=== PATIENT | male | born 1990 | race Caucasian/White ===

== ENCOUNTER 2016-07-16 19:07 | Emergency (ER) | payer OTHER ==
[2016-07-16 19:24] VITALS: RESP 18
[2016-07-16] MEDS ORDERED: SODIUM CHLORIDE 0.9% 1,000 ML IV STA (20:08)
--- NOTE | 2016-07-16 20:15 | ED ---
Syncope HPI - General Chief Complaint: Syncope Stated Complaint: poss seizure/hit head Time Seen by Provider: 07/16/16 19:47 Source: patient, RN notes reviewed Mode of arrival: wheelchair Limitations: no limitations - History of Present Illness Initial Comments: Patient is a 25-year-old male presents to the emergency room for evaluation of possible syncopal episode. Patient states that he was visiting a family member upstairs and was standing for long period of time and all of a sudden felt a hot sensation through his body and woke up on the floor. Patient's mother is present with patient. Patient's mother states that patient fell backwards into the door hit his head. Patient does admit that he has not eaten anything today. Patient's Accu-Chek was at 79. Patient does state he has a headache from hitting his head. Patient's mother states that patient lost consciousness for about 10 seconds and woke up. Patient denies neck pain. Patient's chest pain or shortness breath. Patient denies abdominal pain. Patient denies back pain. Patient denies paresthesia's. Patient denies any dizziness or nausea. - Related Data Home Medications Medication Instructions Recorded Confirmed Multivitamins, Thera [Multivitamin 1 tab PO DAILY 07/16/16 07/16/16 (formulary)] Allergies Allergy/AdvReac Type Severity Reaction Status Date / Time No Known Allergies Allergy Verified 07/16/16 20:15 Review of Systems ROS Statement: Those systems with pertinent positive or pertinent negative responses have been documented in the HPI. ROS Other: All systems not noted in ROS Statement are negative. Past Medical History Past Medical History: Rheumatoid Arthritis (RA) History of Any Multi-Drug Resistant Organisms: None Reported Past Surgical History: No Surgical Hx Reported Past Psychological History: No Psychological Hx Reported Smoking Status: Current every day smoker Past Alcohol Use History: Occasional Past Drug Use History: Marijuana General Exam - General Exam Comments Initial Comments: Sitting in exam room, no acute distress. Limitations: no limitations General appearance: alert, in no apparent distress Head exam: Present: atraumatic, normocephalic, normal inspection Eye exam: Present: normal appearance, PERRL, EOMI Pupils: Present: normal accommodation ENT exam: Present: normal exam, mucous membranes moist, TM's normal bilaterally , normal external ear exam Neck exam: Present: normal inspection, full ROM. Absent: tenderness, lymphadenopathy Respiratory exam: Present: normal lung sounds bilaterally. Absent: respiratory distress Cardiovascular Exam: Present: regular rate, normal rhythm, normal heart sounds Extremities exam: Present: normal inspection Back exam: Present: normal inspection Neurological exam: Present: alert, oriented X3, CN II-XII intact, normal gait Expanded Patient oriented to: Present: person, place, time Speech: Present: fluid speech Cranial nerves: EOM's Intact: Normal, Facial Sensation: Normal Sensory exam: Upper Extremity Light Touch: Normal, Lower Extremity Light Touch: Normal Motor strength exam: RUE: 5, LUE: 5, RLE: 5, LLE: 5 Eye Response: (4) open spontaneously Motor Response: (6) obeys commands Verbal Response: (5) oriented Psychiatric exam: Present: normal affect, normal mood Skin exam: Present: warm, dry, intact, normal color. Absent: rash Course Vital Signs 07/16/16 07/16/16 19:19 21:34 Temperature 98 F 97.5 F L Pulse Rate 70 72 Respiratory 18 18 Rate Blood Pressure 106/63 105/66 O2 Sat by Pulse 97 96 Oximetry EKG Findings - EKG Comments: EKG Findings:: normal sinus rhythm, ventricular rate 64 bpm, MT interval 134 ms , QRS duration 90 ms, QT/QTc 360/371 ms Medical Decision Making - Medical Decision Making Patient is a 25-year-old male presents emergency room for evaluation of syncopal episode. It appears patient had a vasovagal episode. Patient is alert and oriented 3. Patient's CT shows no acute findings. Labs no acute findings. Patient will be discharged home. Return parameters discussed. Case discussed Dr. Zuniga. - Lab Data Result diagrams: 07/16/16 19:55 07/16/16 19:55 Lab Results 07/16/16 07/16/16 07/16/16 Range/Units 19:55 19:55 19:55 WBC 6.7 (3.8-10.6) k/uL RBC 5.69 (4.30-5.90) m/uL Hgb 15.8 (13.0-17.5) gm/dL Hct 49.4 (39.0-53.0) % MCV 86.7 (80.0-100.0) fL MCH 27.7 (25.0-35.0) pg MCHC 32.0 (31.0-37.0) g/dL RDW 13.6 (11.5-15.5) % Plt Count 178 (150-450) k/uL Neutrophils % 51 % Lymphocytes % 33 % Monocytes % 8 % Eosinophils % 4 % Basophils % 1 % Neutrophils # 3.4 (1.3-7.7) k/uL Lymphocytes # 2.2 (1.0-4.8) k/uL Monocytes # 0.5 (0-1.0) k/uL Eosinophils # 0.2 (0-0.7) k/uL Basophils # 0.1 (0-0.2) k/uL PT (9.0-12.0) sec INR (<1.1) APTT (22.0-30.0) sec Sodium 140 (137-145) mmol/L Potassium 4.0 (3.5-5.1) mmol/L Chloride 104 (98-107) mmol/L Carbon Dioxide 24 (22-30) mmol/L Anion Gap 12 mmol/L BUN 11 (9-20) mg/dL Creatinine 1.06 (0.66-1.25) mg/dL Est GFR (MDRD) Af Amer >60 (>60 ml/min/1.73 sqM) Est GFR (MDRD) Non-Af >60 (>60 ml/min/1.73 sqM) Glucose 78 (74-99) mg/dL POC Glucose (mg/dL) (75-99) mg/dL POC Glu Revenue Cycle Administrator ID Calcium 9.5 (8.4-10.2) mg/dL Total Bilirubin 0.8 (0.2-1.3) mg/dL AST 20 (17-59) U/L ALT 24 (21-72) U/L Alkaline Phosphatase 57 (38-126) U/L Total Creatine Kinase 94 (55-170) U/L CK-MB (CK-2) 0.4 (0.0-2.4) ng/mL CK-MB (CK-2) Rel Index 0.4 Troponin I <0.012 (0.000-0.034) ng/mL Total Protein 7.7 (6.3-8.2) g/dL Albumin 4.7 (3.5-5.0) g/dL Urine Color Urine Appearance (Clear) Urine pH (5.0-8.0) Ur Specific [place] (1.001-1.035) Urine Protein (Negative) Urine Glucose (UA) (Negative) Urine Ketones (Negative) Urine Blood (Negative) Urine Nitrite (Negative) Urine Bilirubin (Negative) Urine Urobilinogen (<2.0) mg/dL Ur Leukocyte Esterase (Negative) Urine WBC (0-5) /hpf Ur Squamous Epith Cells (0-4) /hpf Hyaline Casts (0-2) /lpf Urine Mucus (None) /hpf Urine Opiates Screen (NotDetected) Ur Oxycodone Screen (NotDetected) Urine Methadone Screen (NotDetected) Ur Propoxyphene Screen (NotDetected) Ur Barbiturates Screen (NotDetected) U Tricyclic Antidepress (NotDetected) Ur Phencyclidine Scrn (NotDetected) Ur Amphetamines Screen (NotDetected) U Methamphetamines Scrn (NotDetected) U Benzodiazepines Scrn (NotDetected) Urine Cocaine Screen (NotDetected) U Marijuana (THC) Screen (NotDetected) 07/16/16 07/16/16 07/16/16 Range/Units 19:55 19:59 21:05 WBC (3.8-10.6) k/uL RBC (4.30-5.90) m/uL Hgb (13.0-17.5) gm/dL Hct (39.0-53.0) % MCV (80.0-100.0) fL MCH (25.0-35.0) pg MCHC (31.0-37.0) g/dL RDW (11.5-15.5) % Plt Count (150-450) k/uL Neutrophils % % Lymphocytes % % Monocytes % % Eosinophils % % Basophils % % Neutrophils # (1.3-7.7) k/uL Lymphocytes # (1.0-4.8) k/uL Monocytes # (0-1.0) k/uL Eosinophils # (0-0.7) k/uL Basophils # (0-0.2) k/uL PT 13.1 H (9.0-12.0) sec INR 1.3 (<1.1) APTT 24.6 (22.0-30.0) sec Sodium (137-145) mmol/L Potassium (3.5-5.1) mmol/L Chloride (98-107) mmol/L Carbon Dioxide (22-30) mmol/L Anion Gap mmol/L BUN (9-20) mg/dL Creatinine (0.66-1.25) mg/dL Est GFR (MDRD) Af Amer (>60 ml/min/1.73 sqM) Est GFR (MDRD) Non-Af (>60 ml/min/1.73 sqM) Glucose (74-99) mg/dL POC Glucose (mg/dL) 79 (75-99) mg/dL POC Glu Revenue Cycle Administrator ID Lisa Hauser Calcium (8.4-10.2) mg/dL Total Bilirubin (0.2-1.3) mg/dL AST (17-59) U/L ALT (21-72) U/L Alkaline Phosphatase (38-126) U/L Total Creatine Kinase (55-170) U/L CK-MB (CK-2) (0.0-2.4) ng/mL CK-MB (CK-2) Rel Index Troponin I (0.000-0.034) ng/mL Total Protein (6.3-8.2) g/dL Albumin (3.5-5.0) g/dL Urine Color Yellow Urine Appearance Clear (Clear) Urine pH 5.5 (5.0-8.0) Ur Specific [place] 1.014 (1.001-1.035) Urine Protein 2+ H (Negative) Urine Glucose (UA) Negative (Negative) Urine Ketones Negative (Negative) Urine Blood Negative (Negative) Urine Nitrite Negative (Negative) Urine Bilirubin Negative (Negative) Urine Urobilinogen <2.0 (<2.0) mg/dL Ur Leukocyte Esterase Negative (Negative) Urine WBC 5 (0-5) /hpf Ur Squamous Epith Cells <1 (0-4) /hpf Hyaline Casts 4 H (0-2) /lpf Urine Mucus Many H (None) /hpf Urine Opiates Screen Not Detected (NotDetected) Ur Oxycodone Screen Not Detected (NotDetected) Urine Methadone Screen Not Detected (NotDetected) Ur Propoxyphene Screen Not Detected (NotDetected) Ur Barbiturates Screen Not Detected (NotDetected) U Tricyclic Antidepress Not Detected (NotDetected) Ur Phencyclidine Scrn Not Detected (NotDetected) Ur Amphetamines Screen Not Detected (NotDetected) U Methamphetamines Scrn Not Detected (NotDetected) U Benzodiazepines Scrn Not Detected (NotDetected) Urine Cocaine Screen Not Detected (NotDetected) U Marijuana (THC) Screen Detected H (NotDetected) 07/16/16 Range/Units 21:30 WBC (3.8-10.6) k/uL RBC (4.30-5.90) m/uL Hgb (13.0-17.5) gm/dL Hct (39.0-53.0) % MCV (80.0-100.0) fL MCH (25.0-35.0) pg MCHC (31.0-37.0) g/dL RDW (11.5-15.5) % Plt Count (150-450) k/uL Neutrophils % % Lymphocytes % % Monocytes % % Eosinophils % % Basophils % % Neutrophils # (1.3-7.7) k/uL Lymphocytes # (1.0-4.8) k/uL Monocytes # (0-1.0) k/uL Eosinophils # (0-0.7) k/uL Basophils # (0-0.2) k/uL PT (9.0-12.0) sec INR (<1.1) APTT (22.0-30.0) sec Sodium (137-145) mmol/L Potassium (3.5-5.1) mmol/L Chloride (98-107) mmol/L Carbon Dioxide (22-30) mmol/L Anion Gap mmol/L BUN (9-20) mg/dL Creatinine (0.66-1.25) mg/dL Est GFR (MDRD) Af Amer (>60 ml/min/1.73 sqM) Est GFR (MDRD) Non-Af (>60 ml/min/1.73 sqM) Glucose (74-99) mg/dL POC Glucose (mg/dL) 112 H (75-99) mg/dL POC Glu Revenue Cycle Administrator ID Edmond Dean Calcium (8.4-10.2) mg/dL Total Bilirubin (0.2-1.3) mg/dL AST (17-59) U/L ALT (21-72) U/L Alkaline Phosphatase (38-126) U/L Total Creatine Kinase (55-170) U/L CK-MB (CK-2) (0.0-2.4) ng/mL CK-MB (CK-2) Rel Index Troponin I (0.000-0.034) ng/mL Total Protein (6.3-8.2) g/dL Albumin (3.5-5.0) g/dL Urine Color Urine Appearance (Clear) Urine pH (5.0-8.0) Ur Specific [place] (1.001-1.035) Urine Protein (Negative) Urine Glucose (UA) (Negative) Urine Ketones (Negative) Urine Blood (Negative) Urine Nitrite (Negative) Urine Bilirubin (Negative) Urine Urobilinogen (<2.0) mg/dL Ur Leukocyte Esterase (Negative) Urine WBC (0-5) /hpf Ur Squamous Epith Cells (0-4) /hpf Hyaline Casts (0-2) /lpf Urine Mucus (None) /hpf Urine Opiates Screen (NotDetected) Ur Oxycodone Screen (NotDetected) Urine Methadone Screen (NotDetected) Ur Propoxyphene Screen (NotDetected) Ur Barbiturates Screen (NotDetected) U Tricyclic Antidepress (NotDetected) Ur Phencyclidine Scrn (NotDetected) Ur Amphetamines Screen (NotDetected) U Methamphetamines Scrn (NotDetected) U Benzodiazepines Scrn (NotDetected) Urine Cocaine Screen (NotDetected) U Marijuana (THC) Screen (NotDetected) - Radiology Data Radiology results: report reviewed, image reviewed Disposition Clinical Impression: Vasovagal syncope Disposition: HOME SELF-CARE Condition: Good Instructions: Syncope (ED) Additional Instructions: Drink plenty of water. Make sure to eat 3 meals a day. Please follow up with primary care provider in 1-2 days. If any new symptom arises or symptoms worsen , return to ER as soon as possible. Referrals: Ryan Torres MD [Primary Care Provider] - 1-2 days Time of Disposition: 21:27
[2016-07-16 20:18] LABS: Basophils # (A) 0.1 k/uL (0-0.2); Basophils % (A) 1 %; CH 28.6; CHCM 33.2; Eosinophils # (A) 0.2 k/uL (0-0.7); Eosinophils % (A) 4 %; HCT 49.4 % (39.0-53.0); HDW 2.34; HGB 15.8 gm/dL (13.0-17.5); Luc # (Auto) 0.25; Luc % (Auto) 4; Lymphocytes # (A) 2.2 k/uL (1.0-4.8); Lymphocytes % (A) 33 %; MCH 27.7 pg (25.0-35.0); MCV 86.7 fL (80.0-100.0); Mean Platelet Volume 9.1; Monocytes # (A) 0.5 k/uL (0-1.0); Monocytes % (A) 8 %; Neutrophils # (A) 3.4 k/uL (1.3-7.7); Neutrophils % (A) 51 %; RBC 5.69 m/uL (4.30-5.90); RDW 13.6 % (11.5-15.5); WBC 6.7 k/uL (3.8-10.6); WBC (Perox) 6.43
[2016-07-16 20:19] LABS: Glucose,Whole Blood 79 mg/dL (75-99)
[2016-07-16 20:27] LABS: ALT 24 U/L (21-72); AST 20 U/L (17-59); Alkaline Phosphatase 57 U/L (38-126); Anion Gap 12 mmol/L; Blood Urea Nitrogen 11 mg/dL (9-20); Calcium 9.5 mg/dL (8.4-10.2); Carbon Dioxide 24 mmol/L (22-30); Chloride 104 mmol/L (98-107); Glucose 78 mg/dL (74-99); Non-African American GFR(MDRD) >60 (>60 ml/min/1.73 sqM); Sodium 140 mmol/L (137-145); Total Bilirubin 0.8 mg/dL (0.2-1.3); Total Protein 7.7 g/dL (6.3-8.2)
[2016-07-16 20:28] LABS: INR 1.3 (<1.1); Partial Thromboplastin Time 24.6 sec (22.0-30.0); Prothrombin Time 13.1 sec (9.0-12.0)
[2016-07-16 20:37] LABS: Creatine Kinase 94 U/L (55-170)
[2016-07-16 20:50] LABS: Creatine Kinase MB 0.4 ng/mL (0.0-2.4); Troponin I <0.012 ng/mL (0.000-0.034)
--- NOTE | 2016-07-16 20:50 | CT ---
EXAMINATION TYPE: CT brain [facility]an [facility] con DATE OF EXAM: 07/16/2016 COMPARISON: CT brain 11/19/2008. HISTORY: Syncope today with head injury. CT DLP: 1277.7 mGycm Automated exposure control for dose reduction was used. TECHNIQUE: CT scan of the head and cervical spine are performed without contrast. FINDINGS: The ventricles and sulci appear normal. There is no mass effect nor midline shift. There is no sign of intracranial hemorrhage. The calvarium is intact. There is mild straightening of the vertebra which is probably positional. Disc spaces are normal. Fac et joints are intact. The skull base is intact. I see no focal bony destructive process. There is no sign of a fracture. IMPRESSION: Normal CT scan of the brain. No change compared to old exam. Normal CT scan of the cervical spine.
[2016-07-16 21:16] LABS: Appearance,Urine Clear (Clear); Bilirubin,Urine Negative (Negative); Glucose,Urine (UA) Negative (Negative); Ketones,Urine Negative (Negative); Leukocyte Esterase,Urine Negative (Negative); Mucus,Urine Many /hpf; Nitrite,Urine Negative (Negative); PH, Urine 5.5 (5.0-8.0); Particle Count 10491; Protein,Urine 2+ (Negative); Specific Gravity,Urine 1.014 (1.001-1.035); Squamous Epithelial Cell,Urine <1 /hpf (0-4); UA Billing (MACRO vs. MICRO) MICRO; Urobilinogen,Urine <2.0 mg/dL (<2.0); WBC,Urine 5 /hpf (0-5)
[2016-07-16 21:35] VITALS: BP 105/66; PULSE 72; TEMP 97.5
[2016-07-16 21:35] LABS: Glucose,Whole Blood 112 mg/dL (75-99)
== END 2016-07-16 21:43 | disposition home or self-care (01) ==
LOC: EC 19:07
DX: R55 Syncope and collapse (principal); R51 Headache; F17.200 Nicotine dependence, unspecified, uncomplicated; Z79.899 Other long term (current) drug therapy; W01.198A Fall on same level from slipping, tripping and stumbling with subsequent striking against other object, initial encounter; Y92.89 Other specified places as the place of occurrence of the external cause; Y93.89 Activity, other specified
CPT/HCPCS: 36415; 70450; 72125; 80053; 80306; 81001; 82550; 82553; 84484; 85025; 85610; 85730; 93005; 96360; 99284

== ENCOUNTER 2018-08-27 01:38 | Inpatient (IN) | payer BC ==
[2018-08-27] MEDS ORDERED: SODIUM CHLORIDE 0.9% 1,000 ML IV STA (02:29)
[2018-08-27] MEDS ORDERED: LORazepam 2 MG/ML INJ IV STA ×2 (02:30→02:51)
--- NOTE | 2018-08-27 02:31 | ED ---
Overdose HPI - General Stated Complaint: etoh Time Seen by Provider: 08/27/18 02:00 - Related Data Home Medications Medication Instructions Recorded Confirmed Multivitamins, Thera [Multivitamin 1 tab PO DAILY 07/16/16 07/16/16 (formulary)] Previous Rx's Medication Instructions Recorded predniSONE 20 mg PO DAILY 4 Days #4 tab 10/15/17 Allergies Allergy/AdvReac Type Severity Reaction Status Date / Time No Known Allergies Allergy Verified 10/15/17 15:09 Review of Systems ROS Statement: Those systems with pertinent positive or pertinent negative responses have been documented in the HPI. ROS Other: All systems not noted in ROS Statement are negative. Past Medical History Past Medical History: Rheumatoid Arthritis (RA) History of Any Multi-Drug Resistant Organisms: None Reported Past Surgical History: No Surgical Hx Reported Past Psychological History: No Psychological Hx Reported Smoking Status: Current every day smoker Past Alcohol Use History: Occasional Past Drug Use History: Marijuana Course Vital Signs 08/27/18 08/27/18 08/27/18 02:16 02:44 02:59 Pulse Rate 103 H 89 Respiratory 19 18 18 Rate Blood Pressure 145/106 106/67 98/74 O2 Sat by Pulse 99 99 98 Oximetry 08/27/18 08/27/18 08/27/18 03:07 03:10 03:20 Pulse Rate 91 98 73 Respiratory 19 20 15 Rate Blood Pressure 98/74 108/83 113/74 O2 Sat by Pulse Oximetry 08/27/18 08/27/18 08/27/18 03:40 03:50 04:00 Pulse Rate 69 91 70 Respiratory 18 20 14 Rate Blood Pressure 121/71 118/76 118/76 O2 Sat by Pulse 99 99 Oximetry 08/27/18 08/27/18 08/27/18 04:10 04:20 04:40 Pulse Rate 79 84 70 Respiratory 14 16 14 Rate Blood Pressure 121/74 111/79 121/75 O2 Sat by Pulse 100 Oximetry 08/27/18 04:50 Pulse Rate 77 Respiratory 15 Rate Blood Pressure 115/73 O2 Sat by Pulse 99 Oximetry Procedures - Intubation Sedative: Etomidate Paralytic: Succinylcholine Laryngoscope: fiber optic video scope ET Tube Size: 8 Tube Placement Confirmation: visualized tube passing through cords, equal breath sounds bilaterally, no breath sounds over epigastrium, confirmation by capnometry Patient Tolerated Procedure: well, no complications Intubation Complications: difficult intubation Medical Decision Making - Lab Data Result diagrams: 08/27/18 02:04 08/27/18 02:04 Lab Results 08/27/18 08/27/18 08/27/18 Range/Units 02:04 02:04 02:04 WBC 9.8 (3.8-10.6) k/uL RBC 5.42 (4.30-5.90) m/uL Hgb 14.5 (13.0-17.5) gm/dL Hct 44.9 (39.0-53.0) % MCV 82.8 (80.0-100.0) fL MCH 26.8 (25.0-35.0) pg MCHC 32.4 (31.0-37.0) g/dL RDW 13.9 (11.5-15.5) % Plt Count 248 (150-450) k/uL Neutrophils % 51 % Lymphocytes % 38 % Monocytes % 4 % Eosinophils % 3 % Basophils % 1 % Neutrophils # 5.0 (1.3-7.7) k/uL Lymphocytes # 3.7 (1.0-4.8) k/uL Monocytes # 0.4 (0-1.0) k/uL Eosinophils # 0.3 (0-0.7) k/uL Basophils # 0.1 (0-0.2) k/uL Sample Site ABG pH (7.35-7.45) ABG pCO2 (35-45) mmHg ABG pO2 (83-108) mmHg ABG HCO3 (21-25) mmol/L ABG Total CO2 (19-24) mmol/L ABG O2 Saturation (94-97) % ABG Base Excess mmol/L Alexis Test FiO2 % Sodium 144 (137-145) mmol/L Potassium 3.2 L (3.5-5.1) mmol/L Chloride 108 H (98-107) mmol/L Carbon Dioxide 21 L (22-30) mmol/L Anion Gap 15 mmol/L BUN 11 (9-20) mg/dL Creatinine 1.04 (0.66-1.25) mg/dL Est GFR (CKD-EPI)AfAm >90 (>60 ml/min/1.73 sqM) Est GFR (CKD-EPI)NonAf >90 (>60 ml/min/1.73 sqM) Glucose 108 H (74-99) mg/dL POC Glucose (mg/dL) (75-99) mg/dL POC Glu Civil Cad Designer ID Lactic Ac Sepsis Rflx Plasma Lactic Acid Breezy (0.7-2.0) mmol/L Calcium 9.4 (8.4-10.2) mg/dL Total Bilirubin 0.8 (0.2-1.3) mg/dL AST 27 (17-59) U/L ALT 19 L (21-72) U/L Alkaline Phosphatase 71 (38-126) U/L Total Protein 8.1 (6.3-8.2) g/dL Albumin 5.0 (3.5-5.0) g/dL Salicylates <1.0 mg/dL Urine Opiates Screen Not Detected (NotDetected) Ur Oxycodone Screen Not Detected (NotDetected) Urine Methadone Screen Not Detected (NotDetected) Ur Propoxyphene Screen Not Detected (NotDetected) Acetaminophen <10.0 ug/mL Ur Barbiturates Screen Not Detected (NotDetected) U Tricyclic Antidepress Not Detected (NotDetected) Ur Phencyclidine Scrn Not Detected (NotDetected) Ur Amphetamines Screen Not Detected (NotDetected) U Methamphetamines Scrn Not Detected (NotDetected) U Benzodiazepines Scrn Not Detected (NotDetected) Urine Cocaine Screen Not Detected (NotDetected) U Marijuana (THC) Screen Detected H (NotDetected) Serum Alcohol 227 H* mg/dL 08/27/18 08/27/18 08/27/18 Range/Units 02:23 02:44 02:48 WBC (3.8-10.6) k/uL RBC (4.30-5.90) m/uL Hgb (13.0-17.5) gm/dL Hct (39.0-53.0) % MCV (80.0-100.0) fL MCH (25.0-35.0) pg MCHC (31.0-37.0) g/dL RDW (11.5-15.5) % Plt Count (150-450) k/uL Neutrophils % % Lymphocytes % % Monocytes % % Eosinophils % % Basophils % % Neutrophils # (1.3-7.7) k/uL Lymphocytes # (1.0-4.8) k/uL Monocytes # (0-1.0) k/uL Eosinophils # (0-0.7) k/uL Basophils # (0-0.2) k/uL Sample Site ABG pH (7.35-7.45) ABG pCO2 (35-45) mmHg ABG pO2 (83-108) mmHg ABG HCO3 (21-25) mmol/L ABG Total CO2 (19-24) mmol/L ABG O2 Saturation (94-97) % ABG Base Excess mmol/L Alexis Test FiO2 % Sodium (137-145) mmol/L Potassium (3.5-5.1) mmol/L Chloride (98-107) mmol/L Carbon Dioxide (22-30) mmol/L Anion Gap mmol/L BUN (9-20) mg/dL Creatinine (0.66-1.25) mg/dL Est GFR (CKD-EPI)AfAm (>60 ml/min/1.73 sqM) Est GFR (CKD-EPI)NonAf (>60 ml/min/1.73 sqM) Glucose (74-99) mg/dL POC Glucose (mg/dL) 122 H (75-99) mg/dL POC Glu Civil Cad Designer ID Jo Ann Stern Lactic Ac Sepsis Rflx Y Plasma Lactic Acid Breezy 3.2 H* (0.7-2.0) mmol/L Calcium (8.4-10.2) mg/dL Total Bilirubin (0.2-1.3) mg/dL AST (17-59) U/L ALT (21-72) U/L Alkaline Phosphatase (38-126) U/L Total Protein (6.3-8.2) g/dL Albumin (3.5-5.0) g/dL Salicylates mg/dL Urine Opiates Screen (NotDetected) Ur Oxycodone Screen (NotDetected) Urine Methadone Screen (NotDetected) Ur Propoxyphene Screen (NotDetected) Acetaminophen ug/mL Ur Barbiturates Screen (NotDetected) U Tricyclic Antidepress (NotDetected) Ur Phencyclidine Scrn (NotDetected) Ur Amphetamines Screen (NotDetected) U Methamphetamines Scrn (NotDetected) U Benzodiazepines Scrn (NotDetected) Urine Cocaine Screen (NotDetected) U Marijuana (THC) Screen (NotDetected) Serum Alcohol mg/dL 08/27/18 Range/Units 03:10 WBC (3.8-10.6) k/uL RBC (4.30-5.90) m/uL Hgb (13.0-17.5) gm/dL Hct (39.0-53.0) % MCV (80.0-100.0) fL MCH (25.0-35.0) pg MCHC (31.0-37.0) g/dL RDW (11.5-15.5) % Plt Count (150-450) k/uL Neutrophils % % Lymphocytes % % Monocytes % % Eosinophils % % Basophils % % Neutrophils # (1.3-7.7) k/uL Lymphocytes # (1.0-4.8) k/uL Monocytes # (0-1.0) k/uL Eosinophils # (0-0.7) k/uL Basophils # (0-0.2) k/uL Sample Site rbrac ABG pH 7.27 L (7.35-7.45) ABG pCO2 47 H (35-45) mmHg ABG pO2 >400 H (83-108) mmHg ABG HCO3 21 (21-25) mmol/L ABG Total CO2 23 (19-24) mmol/L ABG O2 Saturation 99.8 H (94-97) % ABG Base Excess -5.8 mmol/L Alexis Test yes FiO2 100 % Sodium (137-145) mmol/L Potassium (3.5-5.1) mmol/L Chloride (98-107) mmol/L Carbon Dioxide (22-30) mmol/L Anion Gap mmol/L BUN (9-20) mg/dL Creatinine (0.66-1.25) mg/dL Est GFR (CKD-EPI)AfAm (>60 ml/min/1.73 sqM) Est GFR (CKD-EPI)NonAf (>60 ml/min/1.73 sqM) Glucose (74-99) mg/dL POC Glucose (mg/dL) (75-99) mg/dL POC Glu Civil Cad Designer ID Lactic Ac Sepsis Rflx Plasma Lactic Acid Breezy (0.7-2.0) mmol/L Calcium (8.4-10.2) mg/dL Total Bilirubin (0.2-1.3) mg/dL AST (17-59) U/L ALT (21-72) U/L Alkaline Phosphatase (38-126) U/L Total Protein (6.3-8.2) g/dL Albumin (3.5-5.0) g/dL Salicylates mg/dL Urine Opiates Screen (NotDetected) Ur Oxycodone Screen (NotDetected) Urine Methadone Screen (NotDetected) Ur Propoxyphene Screen (NotDetected) Acetaminophen ug/mL Ur Barbiturates Screen (NotDetected) U Tricyclic Antidepress (NotDetected) Ur Phencyclidine Scrn (NotDetected) Ur Amphetamines Screen (NotDetected) U Methamphetamines Scrn (NotDetected) U Benzodiazepines Scrn (NotDetected) Urine Cocaine Screen (NotDetected) U Marijuana (THC) Screen (NotDetected) Serum Alcohol mg/dL Disposition Clinical Impression: Alcoholic intoxication Disposition: ADMITTED IP TO THIS [facility] Condition: Serious Instructions (If sedation given, give patient instructions): Alcohol Intox ication (ED) Referrals: Ryan Torres MD [Primary Care Provider] - 1-2 days
[2018-08-27 02:39] LABS: Basophils # (A) 0.1 k/uL (0-0.2); Basophils % (A) 1 %; Eosinophils # (A) 0.3 k/uL (0-0.7); Eosinophils % (A) 3 %; HCT 44.9 % (39.0-53.0); HGB 14.5 gm/dL (13.0-17.5); Lymphocytes # (A) 3.7 k/uL (1.0-4.8); Lymphocytes % (A) 38 %; MCH 26.8 pg (25.0-35.0); MCHC 32.4 g/dL (31.0-37.0); MCV 82.8 fL (80.0-100.0); Monocytes # (A) 0.4 k/uL (0-1.0); Monocytes % (A) 4 %; Neutrophils % (A) 51 %; Platelet Count 248 k/uL (150-450); RBC 5.42 m/uL (4.30-5.90); RDW 13.9 % (11.5-15.5); WBC 9.8 k/uL (3.8-10.6)
[2018-08-27 02:44] LABS: ALT 19 U/L (21-72); AST 27 U/L (17-59); Acetaminophen <10.0 ug/mL; African American GFR (CKD) >90 (>60 ml/min/1.73 sqM); Alkaline Phosphatase 71 U/L (38-126); Anion Gap 15 mmol/L; Blood Urea Nitrogen 11 mg/dL (9-20); Calcium 9.4 mg/dL (8.4-10.2); Carbon Dioxide 21 mmol/L (22-30); Chloride 108 mmol/L (98-107); Glucose 108 mg/dL (74-99); Potassium 3.2 mmol/L (3.5-5.1); Salicylate <1.0 mg/dL; Sodium 144 mmol/L (137-145); Total Bilirubin 0.8 mg/dL (0.2-1.3); Total Protein 8.1 g/dL (6.3-8.2)
[2018-08-27 02:46] LABS: Glucose,Whole Blood 122 mg/dL (75-99)
[2018-08-27 02:48] LABS: Alcohol 227 mg/dL
[2018-08-27 02:50] LABS: Cocaine Screen,Urine Not Detected (NotDetected); Opiate Screen,Urine Not Detected (NotDetected); Phencyclidine Screen,Urine Not Detected (NotDetected); Urn Cannabinoid Scrn Detected (NotDetected)
[2018-08-27] MEDS ORDERED: ETOMIDATE 2 MG/ML 10 ML VIAL IVP STA (02:50)
[2018-08-27] MEDS ORDERED: ONDANSETRON 4 MG/2 ML VIAL IVP STA (02:50)
[2018-08-27 02:51] LABS: Amphetamine Screen,Urine Not Detected (NotDetected); Barbiturate Screen,Urine Not Detected (NotDetected); Benzodiazepines Screen,Urine Not Detected (NotDetected); Methadone Screen, Urine Not Detected (NotDetected); Oxycodone Screen, Urine Not Detected (NotDetected); Tricyclic Antidepressant,Urine Not Detected (NotDetected)
--- NOTE | 2018-08-27 02:51 | XR ---
EXAM: XR Chest, 1 View CLINICAL HISTORY: ITS.REASON XR Reason: intubation TECHNIQUE: Frontal view of the chest. COMPARISON: No relevant prior studies available. IMPRESSION: ET tube terminates 2.9 cm from the mark. NG tube side port terminates just past the GE junction. Recommend advancing 7-10 cm.
[2018-08-27] MEDS ORDERED: SUCCINYLCHOLINE CHLORIDE VIAL 200 MG/10 ML VIAL IV STA (02:53)
[2018-08-27 03:11] LABS: ABG Base Excess -5.8 mmol/L; ABG HCO3 21 mmol/L (21-25); ABG Oxygen Saturation 99.8 % (94-97); ABG PCO2 47 mmHg (35-45); ABG PH 7.27 (7.35-7.45); ABG PO2 >400 mmHg (83-108); ABG TCO2 23 mmol/L (19-24)
[2018-08-27] MEDS ORDERED: PROPOFOL 1,000 MG in EMPTY BAG 1 BAG IV ONE (03:13)
[2018-08-27 03:20] LABS: Allen Test Performed? yes
[2018-08-27] MEDS ORDERED: SODIUM CHLORIDE 0.9% 1,000 ML IV ONE (03:56)
[2018-08-27] MEDS ORDERED: NALOXONE 0.4 MG/ML 1 ML VIAL IV PRN (06:08)
[2018-08-27] MEDS: SODIUM CHLORIDE 0.9% 1,000 ML IV SCH ×2 (07:15→16:26)
[2018-08-27 08:13] LABS: Magnesium 2.4 mg/dL (1.6-2.3); Phosphorus 4.3 mg/dL (2.5-4.5)
[2018-08-27] MEDS ORDERED: IPRATROPIUM-ALBUTEROL 3 ML NEB INHALATION PRN (08:14)
[2018-08-27] MEDS ORDERED: Potassium Replacement Protocol 1 EACH MISC MISCELLANE PRN (08:14)
[2018-08-27] MEDS ORDERED: PROPOFOL 1,000 MG in EMPTY BAG 1 BAG IV SCH (08:15)
[2018-08-27] MEDS: POTASSIUM BICARBONATE/CIT AC 20 MEQ TABLET.EFF NG-TUBE SCH ×2 (08:58→10:50)
[2018-08-27] MEDS: FAMOTIDINE 20 MG/2 ML VIAL IV SCH ×2 (08:58→22:07)
[2018-08-27] MEDS ORDERED: CHLORHEXIDINE GLUCONATE 15 ML CUP MUCOUS MEM SCH (09:00)
[2018-08-27] MEDS ORDERED: LORazepam 2 MG/ML INJ IV PRN ×3 (09:09)
[2018-08-27] MEDS ORDERED: SODIUM CHLORIDE 0.9% 1,000 ML with POTASSIUM CHLORIDE 20 MEQ, MVI, ADULT NO.4 WITH VIT ... IV SCH ×5 (09:15)
--- NOTE | 2018-08-27 10:10 | CONS ---
CONSULTATION This is a pulmonary/critical care consultation DATE OF SERVICE: August 27, 2018. This is a 28-year-old gentleman who apparently was evaluated by Dr. Higgins in the emergency room. He apparently was [place] in [place] He was brought into the emergency room. His alcohol level was 227. His drug screen was positive for marijuana. He does carry with him a diagnosis of rheumatoid arthritis. Anyway, because of poor mental status, the patient was intubated and mechanically ventilated. Currently, he is in the ICU on Diprivan at 50 mcg/kg per minute, saline IV 100 mL an hour. His chest x-ray looks okay. His vent settings include the volume assist-control mode rate of 14, tidal volume 500, FiO2 35% and PEEP of 5. Blood gases show a pO2 of greater than 400, a pACO2 of 47, and pH 7.27. Anyway, according to the ER doctor, at 1 point, he was much more awake and alert and then at some point, he became less responsive, which is why they chose to intubate him. They were concerned that he could not protect his airway. CURRENT HOME MEDICATIONS: Include multivitamins and prednisone. ALLERGIES: Denied. MEDICAL HISTORY: Positive only for rheumatoid arthritis. No past surgical history. SOCIAL HISTORY: Positive for ongoing tobacco use as well as marijuana use. There is occasional alcohol use. His alcohol level on this admission was 227. FAMILY HISTORY: Noncontributory. OCCUPATION HISTORY: Not known. REVIEW OF SYSTEMS: Cannot be obtained. No family members are available. The patient is currently intubated, mechanically ventilated and sedated with propofol. PHYSICAL EXAMINATION: VITAL SIGNS: Current vital signs are reviewed. His temperature is 98.2, heart rate 66, respiratory rate 14, blood pressure 113/75, mean 87, saturations are 95%-96% on 35% FiO2 and 5 of PEEP. GENERAL: Appears in no acute distress. Currently sedated. He does arouse. He appears to be somewhat agitated when you do arouse him. HEENT examination is grossly unremarkable. There is an orally placed endotracheal tube. NECK: Supple. Full range of motion. No adenopathy. CARDIOVASCULAR examination reveals a regular rhythm and rate. Heart rate 66. S1, S2 normal. LUNGS: Relatively clear. ABDOMEN: Soft. Bowel sounds are heard. EXTREMITIES are intact. No cyanosis, clubbing, or edema. SKIN: Without rash. NEUROLOGIC examination could not be evaluated. LABORATORY DATA: A CBC is normal. Blood gases have been noted. Sodium 144, potassium 3.2, chloride 108, CO2 21 anion gap is 15. BUN and creatinine were 11 and 1.04. Lactic acid was 2.6. Magnesium 2.4. Liver function tests were okay. Drug screen was positive for marijuana and alcohol level was 227. Medications are reviewed. These medications appear to be appropriate. ASSESSMENT: 1. Acute hypoxemic respiratory failure secondary to alcohol intoxication/alcohol excess and patient inability to protect his airway. 2. History of rheumatoid arthritis. 3. History of ongoing and daily tobacco use. 4. History of marijuana use. PLAN: The patient's sedation will be held. We will see if we can get the patient extubated. We will place the patient on PSV 5, CPAP of 5. We will see if we can get some weaning parameters on the patient and get the patient extubated. Additional recommendations and suggestions are forthcoming. Prognosis is guarded. We will continue to follow. Unnecessary medications will be discontinued. MMODL / IJN: [id number] /
[2018-08-27] MEDS ORDERED: IPRATROPIUM-ALBUTEROL 3 ML NEB INHALATION SCH (12:00)
[2018-08-27 14:00] VITALS: BMI 20.7
--- NOTE | 2018-08-27 17:10 | P.HPIM ---
History of Present Illness H&P Date: 08/27/18 Chief Complaint: Altered mental status change Mr. Green is a 28-year-old male with a past medical history of rheumatoid arthritis brought into the hospital as he was found intoxicated in a beer tent [place] the [employer] [place] last night. In the ER patient was intubated for his air way protection due to his poor mentation. In the emergency department patient was found to have an alcohol level of 227 and also his UDS was positive for marijuana. Patient had chest x-ray that was within normal limits and also EKG and that was within normal limits. Patient is currently in the ICU, he has been extubated this morning around 9:15. On talking to the patient he states that he was partying last night and had significant amount of alcohol. For the past couple of days he's been working for long hours and has been sleep deprived. He thinks because of his sleep deprivation, alcohol intake made his situation worse. Patient has history of rheumatoid arthritis but does not take any medications currently. As per the nursing staff report, patient's gait is unsteady. Review of Systems REVIEW OF SYSTEMS: PSYCH: No history of anxiety or depression NEURO:No c/o weakness of the extremties, No facial droop, No speech abnormalities. VASCULAR: no edema HEMATOLOGIC: No history of easy bleeding and bruising . No recent infections . RESPIRATORY: No cough, No SOB, No chest discomfort. IMMUNE: No infections INTEGUMENT: no rashes OPHTHALMOLOGIC: No blurry vision and no eye discharge : No dysuria or hematuria CARDIAC: No chest pain , shortness of breath , paroxysmal nocturnal dyspnea MUSCULOSKELETAL : No Aches or pains in the joints or muscles. GI: No abdominal pain, Nausea or vomiting. No constipation or diarrhea. Past Medical History Past Medical History: Rheumatoid Arthritis (RA) Additional Past Medical History / Comment(s): Marijuana for RA and has a medical card History of Any Multi-Drug Resistant Organisms: None Reported Past Surgical History: No Surgical Hx Reported Past Anesthesia/Blood Transfusion Reactions: Unable to Obtain Past Psychological History: No Psychological Hx Reported Smoking Status: Current every day smoker Past Alcohol Use History: Occasional Additional Past Alcohol Use History / Comment(s): Last time before this drank alcohol "4 months ago" works midnights 7 days a week Past Drug Use History: Marijuana Additional Drug Use History / Comment(s): Marijuana for RA - Past Family History Mother Family Medical History: Coronary Artery Disease (CAD) Additional Family Medical History / Comment(s): Pacemaker Father History Unknown: Yes Medications and Allergies Home Medications Medication Instructions Recorded Confirmed Type No Known Home Medications 08/27/18 08/27/18 History Allergies Allergy/AdvReac Type Severity Reaction Status Date / Time No Known Allergies Allergy Verified 08/27/18 07:04 Physical Exam Vitals: Vital Signs Temp Pulse Resp BP Pulse Ox 08/27/18 16:00 98.3 F 58 L 11 L 106/63 99 08/27/18 15:30 60 11 L 116/67 95 08/27/18 15:00 79 15 122/79 96 08/27/18 14:30 82 20 112/71 97 08/27/18 14:00 73 8 L 115/70 98 08/27/18 13:30 58 L 16 117/68 97 08/27/18 13:00 98.1 F 67 8 L 122/84 96 08/27/18 12:30 108 H 22 96/54 97 08/27/18 12:00 71 11 L 101/56 98 08/27/18 11:30 60 7 L 122/79 98 08/27/18 11:00 75 11 L 114/71 99 08/27/18 10:30 64 16 110/70 100 08/27/18 10:00 70 10 L 129/72 99 08/27/18 09:30 96 7 L 115/94 98 08/27/18 09:00 107 H 15 92/65 100 08/27/18 08:30 90 18 95/69 96 08/27/18 08:00 98.1 F 82 15 97/66 97 08/27/18 07:30 87 18 115/75 97 08/27/18 07:00 85 14 116/78 98 08/27/18 06:20 66 14 113/75 95 08/27/18 06:10 75 14 114/78 94 L 08/27/18 05:50 67 15 118/71 97 08/27/18 05:40 75 14 113/73 97 08/27/18 05:20 79 14 115/74 98 08/27/18 05:10 74 14 120/72 98 08/27/18 04:50 77 15 115/73 99 07/20/19 04:40 70 14 121/75 100 08/27/18 04:20 84 16 111/79 08/27/18 04:10 79 14 121/74 08/27/18 04:00 70 14 118/76 08/27/18 03:50 91 20 118/76 99 08/27/18 03:40 69 18 121/71 99 08/27/18 03:20 73 15 113/74 08/27/18 03:10 98 20 108/83 08/27/18 03:07 91 19 98/74 08/27/18 02:59 89 18 98/74 98 08/27/18 02:44 103 H 18 106/67 99 08/27/18 02:16 19 145/106 99 Intake and Output 08/27/18 08/27/18 08/27/18 06:59 14:59 22:59 Intake Total 56.551 818.55 100 Output Total 266 Balance 56.551 552.55 100 Intake: Intake, IV Titration 56.551 818.55 100 Amount Mvi, Adult No.4 with Vit 500 100 K 10 ml Thiamine 100 mg Folic Acid 1 mg In 0.9% NaCl with KCl 20 Meq/l 1, 000 ml @ 100 mls/hr IV . BY DURATION [facility] Rx#: [id number] Propofol 1,000 mg In 56.551 Empty Bag 1 bag @ Titrate IV .Q0M ONE Rx#: [id number] Propofol 1,000 mg In 18.55 Empty Bag 1 bag @ Titrate IV .Q0M [facility] Rx#: [id number] Sodium Chloride 0.9% 1, 300 000 ml @ 100 mls/hr IV . BY DURATION [facility] Rx#: [id number] Output: Urine 266 Other: Voiding Method Indwelling Catheter # Voids 1 Weight 53 kg GEN. APPEARANCE: Appears to be thin and emaciated HEAD EXAM: atraumatic, normocephalic, normal inspection EYE EXAM: normal appearance, PERRL, EOMI. Absent: scleral icterus, conjunctival injection, periorbital swelling ENT EXAM: gum Hypertrophy. Poor oral hygiene. NECK EXAM: normal inspection. Absent: tenderness, meningismus, full ROM, lymphadenopathy RESPIRATORY EXAM: normal lung sounds bilaterally. Absent: respiratory distress, wheezes, rales, rhonchi, stridor CARDIOVASCULAR EXAM: regular rate, normal rhythm, normal heart sounds. Absent: systolic murmur, diastolic murmur, rubs, gallop, clicks GI/ABDOMINAL EXAM: soft, normal bowel sounds. Absent: distended, tenderness, guarding, rebound, rigid EXTREMITIES EXAM: No peripheral edema NEUROLOGICAL EXAM: alert, oriented X3, no focal neurological deficits. PSYCHIATRIC EXAM: normal affect, normal mood SKIN EXAM: warm, dry, intact, normal color. Absent: rash Results CBC & Chem 7: 08/27/18 02:04 08/27/18 13:16 Labs: Abnormal Lab Results - Last 24 Hours (Table) 08/27/18 08/27/18 08/27/18 Range/Units 02:04 02:04 02:04 ABG pH (7.35-7.45) ABG pCO2 (35-45) mmHg ABG pO2 (83-108) mmHg ABG O2 Saturation (94-97) % Potassium 3.2 L (3.5-5.1) mmol/L Chloride 108 H (98-107) mmol/L Carbon Dioxide 21 L (22-30) mmol/L Glucose 108 H (74-99) mg/dL POC Glucose (mg/dL) (75-99) mg/dL Plasma Lactic Acid Breezy (0.7-2.0) mmol/L Magnesium 2.4 H (1.6-2.3) mg/dL ALT 19 L (21-72) U/L U Marijuana (THC) Screen Detected H (NotDetected) Serum Alcohol 227 H* mg/dL 08/27/18 08/27/18 08/27/18 Range/Units 02:23 02:44 03:10 ABG pH 7.27 L (7.35-7.45) ABG pCO2 47 H (35-45) mmHg ABG pO2 >400 H (83-108) mmHg ABG O2 Saturation 99.8 H (94-97) % Potassium (3.5-5.1) mmol/L Chloride (98-107) mmol/L Carbon Dioxide (22-30) mmol/L Glucose (74-99) mg/dL POC Glucose (mg/dL) 122 H (75-99) mg/dL Plasma Lactic Acid Breezy 3.2 H* (0.7-2.0) mmol/L Magnesium (1.6-2.3) mg/dL ALT (21-72) U/L U Marijuana (THC) Screen (NotDetected) Serum Alcohol mg/dL 08/27/18 Range/Units 06:04 ABG pH (7.35-7.45) ABG pCO2 (35-45) mmHg ABG pO2 (83-108) mmHg ABG O2 Saturation (94-97) % Potassium (3.5-5.1) mmol/L Chloride (98-107) mmol/L Carbon Dioxide (22-30) mmol/L Glucose (74-99) mg/dL POC Glucose (mg/dL) (75-99) mg/dL Plasma Lactic Acid Breezy 2.6 H* (0.7-2.0) mmol/L Magnesium (1.6-2.3) mg/dL ALT (21-72) U/L U Marijuana (THC) Screen (NotDetected) Serum Alcohol mg/dL Thrombosis Risk Factor Assmnt - Choose All That Apply Any of the Below Risk Factors Present?: No Other Risk Factors: No Other congenital or acquired thrombophilia - If yes, enter type in comment: No Thrombosis Risk Factor Assessment Level: Very Low Risk Assessment and Plan Assessment: ASSESSMENT Acute encephalopathy secondary to alcohol intoxication Acute respiratory distress - due to encephalopathy - status post extubation this morning Alcohol intoxication Rheumatoid arthritis Marijuana dependence PLAN: Patient has been successfully extubated this morning. He still has unsteady gait. He will be transferred out of the ICU. Further recommendations to follow depending on the progress of the patient.
[2018-08-28 04:57] LABS: Basophils # (A) 0.1 k/uL (0-0.2); Basophils % (A) 1 %; Eosinophils # (A) 0.3 k/uL (0-0.7); Eosinophils % (A) 4 %; HCT 39.2 % (39.0-53.0); HGB 12.8 gm/dL (13.0-17.5); Lymphocytes # (A) 2.2 k/uL (1.0-4.8); Lymphocytes % (A) 30 %; MCH 27.3 pg (25.0-35.0); MCHC 32.7 g/dL (31.0-37.0); MCV 83.4 fL (80.0-100.0); Mean Platelet Volume 9.1; Monocytes # (A) 0.5 k/uL (0-1.0); Monocytes % (A) 7 %; Neutrophils # (A) 4.1 k/uL (1.3-7.7); Neutrophils % (A) 56 %; Platelet Count 153 k/uL (150-450); RDW 13.9 % (11.5-15.5); WBC 7.3 k/uL (3.8-10.6)
[2018-08-28 05:08] LABS: African American GFR (CKD) >90 (>60 ml/min/1.73 sqM); Anion Gap 9 mmol/L; Blood Urea Nitrogen 12 mg/dL (9-20); Calcium 8.8 mg/dL (8.4-10.2); Carbon Dioxide 22 mmol/L (22-30); Chloride 108 mmol/L (98-107); Glucose 86 mg/dL (74-99); Sodium 139 mmol/L (137-145)
[2018-08-28] MEDS: FAMOTIDINE 20 MG/2 ML VIAL IV SCH (09:32)
[2018-08-28 13:38] VITALS: BP 122/86; PULSE 56; RESP 19; TEMP 97.7
--- NOTE | 2018-08-28 15:42 | P.DS ---
Providers Date of admission: 08/27/18 06:08 Expected date of discharge: 08/28/18 Attending physician: Davion Davalos Primary care physician: Melissa Davis [facility] Course: Mr. Green is a 28-year-old male with a past medical history of rheumatoid arthritis brought into the hospital as he was found intoxicated in a beer tent at the [employer] festival last night. In the ER patient was intubated for his air way protection due to his poor mentation. In the emergency department patient was found to have an alcohol level of 227 and also his UDS was positive for marijuana. Patient had chest x-ray that was within normal limits and also EKG and that was within normal limits. On talking to the patient he states that he was partying last night and had significant amount of alcohol. For the past couple of days he's been working for long hours and has been sleep deprived. He thinks because of his sleep deprivation, alcohol intake made his situation worse. Patient has history of rheumatoid arthritis but does not take any medications currently. Patient is currently in the ICU, he has been extubated yesterday . He states that he is back to baseline. Patient had gait issues yesterday but has a steady gait today. Patient's labs and medications reviewed. Vitals and physical exam within normal limits. DISCHARGE DIAGNOSIS Acute encephalopathy secondary to alcohol intoxication Acute respiratory distress - due to encephalopathy - status post extubation this morning Alcohol intoxication Rheumatoid arthritis Marijuana dependence PLAN: Patient is being discharged home in a stable condition. He is advised to take thiamine supplements and refrain himself from alcohol. He usually follows with Dr. Torres so advised to have a follow-up visit with him in 1-2 days. Patient Condition at Discharge: Stable Plan - Discharge Summary Discharge Rx Participant: Yes New Discharge Prescriptions: New Thiamine [Vitamin B-1] 100 mg PO DAILY #30 tablet Discharge Medication List Thiamine [Vitamin B-1] 100 mg PO DAILY #30 tablet 08/28/18 [Rx] Follow up Appointment(s)/Referral(s): Ryan Torres MD [Primary Care Provider] - 1-2 days Patient Instructions/Handouts: Alcohol Intoxication (ED)
[2018-08-28] MEDS ORDERED: FAMOTIDINE 20 MG TAB PO SCH (21:00)
== END 2018-08-28 15:48 | disposition home or self-care (01) | DRG 896 ==
LOC: EC 01:38 → 2SICU 06:08
PROVIDERS: ADMIT Internal Medicine; ATTEND Internal Medicine
PROC: 5A1935Z Respiratory Ventilation, Less than 24 Consecutive Hours (ICD-10-PCS; principal; 2018-08-27)
PROC: 0BH17EZ Insertion of Endotracheal Airway into Trachea, Via Natural or Artificial Opening (ICD-10-PCS; 2018-08-27)
DX: F10.129 Alcohol abuse with intoxication, unspecified (principal); G92 Toxic encephalopathy; T88.4XXA Failed or difficult intubation, initial encounter; F12.20 Cannabis dependence, uncomplicated; F17.200 Nicotine dependence, unspecified, uncomplicated; M06.9 Rheumatoid arthritis, unspecified; R06.03 Acute respiratory distress; Y90.7 Blood alcohol level of 200-239 mg/100 ml; Z72.820 Sleep deprivation; Z82.49 Family history of ischemic heart disease and other diseases of the circulatory system
CPT/HCPCS: 31500; 36415; 36600; 80048; 80053; 80306; 80320; 80329; 82553; 82805; 83520; 83605; 83735; 84100; 84132; 85025; 96374; 96375; 99285

== ENCOUNTER 2022-12-29 03:36 | Emergency (ER) | payer BC, OTHER ==
[2022-12-29 03:56] VITALS: RESP 18; TEMP 98.3
--- NOTE | 2022-12-29 04:04 | ED ---
General Adult HPI - General Chief complaint: Recheck/Abnormal Lab/Rx Stated complaint: Swollen gland on neck Time Seen by Provider: 12/29/22 04:04 Source: patient Mode of arrival: ambulatory Limitations: no limitations - History of Present Illness Initial comments: Dillon sylvester 32-year-old male who presents the ER today for evaluation of left sided cervical lymphadenopathy. Patient reports he has multiple dental caries and broken teeth he scheduled to see an oral surgeon next week for dental extraction. Patient states he noted some tender anterior cervical lymphadenopathy today and was concerned for infection so he came to the ER. Patient is not currently on oral antibiotics for his teeth. No other complaints. No recent fevers or chills. No sore throat. - Related Data Previous Rx's Medication Instructions Recorded Thiamine [Vitamin B-1] 100 mg PO DAILY #30 tablet 08/28/18 Penicillin V Potassium [Pen Vee K] 500 mg PO Q6H #28 tablet 12/29/22 Allergies Allergy/AdvReac Type Severity Reaction Status Date / Time No Known Allergies Allergy Verified 08/27/18 07:04 Review of Systems ROS Statement: Those systems with pertinent positive or pertinent negative responses have been documented in the HPI. ROS Other: All systems not noted in ROS Statement are negative. Past Medical History Past Medical History: Rheumatoid Arthritis (RA) Additional Past Medical History / Comment(s): Marijuana for RA and has a medical card History of Any Multi-Drug Resistant Organisms: None Reported Past Surgical History: No Surgical Hx Reported Past Anesthesia/Blood Transfusion Reactions: Unable to Obtain Past Psychological History: No Psychological Hx Reported Smoking Status: Current every day smoker Past Alcohol Use History: Occasional Past Drug Use History: Marijuana - Past Family History Mother Family Medical History: Coronary Artery Disease (CAD) Additional Family Medical History / Comment(s): Pacemaker Father History Unknown: Yes General Exam - General Exam Comments Initial Comments: Physical Exam GENERAL: Patient is well-developed and well-nourished. Patient is nontoxic and well-hydrated and is in no distress. HENT: Normocephalic, Atraumatic Multiple dental caries, all 3 molars on the left are broken EYES: PERRL, EOMI PULMONARY: Unlabored respirations. CARDIOVASCULAR: RRR Warm and well perfused extremities ABDOMEN: Non-distended SKIN: No rashes or bruising : Deferred NEUROLOGIC: Alert and oriented Normal speech MUSCULOSKELETAL: Deformities of hand consistent with rheumatoid arthritis PSYCHIATRIC: No SI/HI Limitations: no limitations Course Vital Signs 12/29/22 03:40 Temperature 98.3 F Pulse Rate 90 Respiratory 18 Rate Blood Pressure 135/91 O2 Sat by Pulse 95 Oximetry Medical Decision Making - Medical Decision Making Was pt. sent in by a medical professional or institution (MARI Birch, FOUNDATION RELATIONS MANAGER, urgent care, hospital, or residential...) When possible be specific @ -No Did you speak to anyone other than the patient for history (EMS, parent, family, police, friend...)? What history was obtained from this source @ -No Did you review nursing and triage notes (agree or disagree)? Why? @ -I reviewed and agree with nursing and triage notes Were old charts reviewed (outside hosp., previous admission, EMS record, old EKG, old radiological studies, urgent care reports/EKG's, residential records)? Report findings @ -No old charts were reviewed Differential Diagnosis (chest pain, altered mental status, abdominal pain women, abdominal pain men, vaginal bleeding, weakness, fever, dyspnea, syncope, headache, dizziness, GI bleed, back pain, seizure, CVA, palpatations, mental health, musculoskeletal)? @ -Differential for cervical lymphadenopathy is bacterial infection, viral infection, autoimmune, malignancy - this is not an all inclusive list EKG interpreted by me (3pts min.). @ -As above X-rays interpreted by me (1pt min.). @ -None done CT interpreted by me (1pt min.). @ -None done U/S interpreted by me (1pt. min.). @ -None done What testing was considered but not performed or refused? (CT, X-rays, U/S, labs)? Why? @ -None What meds were considered but not given or refused? Why? @ -None Did you discuss the management of the patient with other professionals (professionals i.e. MARI Birch, FOUNDATION RELATIONS MANAGER, lab, RT, psych nurse, social services manager, svp business development, teacher, senior administrative services officer, manager case)? Give summary @ -No Was smoking cessation discussed for >3mins.? @ -No Was critical care preformed (if so, how long)? @ -No Were there social determinants of health that impacted care today? How? (Homelessness, low income, unemployed, alcoholism, drug addiction, transportation, low edu. Level, literacy, decrease access to med. care, snf, rehab)? @ -No Was there de-escalation of care discussed even if they declined (Discuss DNR or withdrawal of care, Hospice)? DNR status @ -No What co-morbidities impacted this encounter? (DM, HTN, Smoking, COPD, CAD, Cancer, CVA, ARF, Chemo, Hep., AIDS, mental health diagnosis, sleep apnea, morbid obesity)? @ -None Was patient admitted / discharged? Hospital course, mention meds given and route, prescriptions, significant lab abnormalities, going to OR and other pertinent info. @ -Discharge Undiagnosed new problem with uncertain prognosis? @ -No Drug Therapy requiring intensive monitoring for toxicity (Heparin, Nitro, Insuli n, Cardizem)? @ -No Were any procedures done? @ -No Diagnosis/symptom? @ -Reactive lymphadenopathy due to dental caries/dental infection Acute, or Chronic, or Acute on Chronic? @ -Acute Uncomplicated (without systemic symptoms) or Complicated (systemic symptoms)? @ -default Side effects of treatment? @ -No Exacerbation, Progression, or Severe Exacerbation? @ -No Poses a threat to life or bodily function? How? (Chest pain, [place], SD, pneumonia, PE, COPD, DKA, ARF, appy, cholecystitis, CVA, Diverticulitis, Homicidal, Suicidal, threat to staff... and all critical care pts) @ -No Disposition Clinical Impression: Dental caries, Left cervical lymphadenopathy Disposition: HOME SELF-CARE Condition: Stable Additional Instructions: Follow up with oral surgeon for dental extraction Is patient prescribed a controlled substance at d/c from ED?: No Referrals: None,Stated [Primary Care Provider] - 1-2 days
[2022-12-29 05:15] VITALS: BP 129/90; PULSE 85
== END 2022-12-29 04:58 | disposition home or self-care (01) ==
LOC: EC 03:36
DX: K02.9 Dental caries, unspecified (principal); R59.1 Generalized enlarged lymph nodes; F17.200 Nicotine dependence, unspecified, uncomplicated; F12.90 Cannabis use, unspecified, uncomplicated
CPT/HCPCS: 99283